=== PATIENT | female | born 1965 | race Caucasian/White ===

== ENCOUNTER 2020-06-26 09:26 | Day surgery (SDC) | payer BC ==
[2020-06-26] MEDS ORDERED: Midazolam 1 MG/ML 2 ML SDV IV ONE (09:27)
[2020-06-26] MEDS ORDERED: Propofol 200 MG/20 ML SDV IV ONE (09:27)
[2020-06-26] MEDS ORDERED: Sodium Chloride 0.9% 10 ML Syringe FLUSH PRN (09:30)
[2020-06-26] MEDS ORDERED: Lactated Ringers 1,000 ML IV SCH (09:30)
[2020-06-26] MEDS ORDERED: Propofol 200 MG/20 ML SDV ONE (10:18)
[2020-06-26] MEDS ORDERED: Midazolam 1 MG/ML 2 ML SDV ONE (10:18)
--- NOTE | 2020-06-26 10:38 | PCM.PN ---
- General Info Date of Service: 06/26/20 - Review of Systems Systems Review Comment:: 55-year-old female referred for her initial screening colonoscopy. She denies any recent change in bowel habits or rectal bleeding. She also denies any known family history of colon cancer. Patient is medically stable to proceed today. Her recent history and physical is reviewed and no significant changes are noted. I have discussed the proposed colonoscopy with the patient. Risks such as but not limited to bleeding and GI injury reviewed. She agrees to proceed. - Patient Data Vitals - Most Recent: Last Vital Signs Temp 96.4 F L 06/26/20 09:47 Pulse 80 06/26/20 09:47 Resp 20 06/26/20 09:47 BP 153/92 H 06/26/20 09:47 Pulse Ox 95 06/26/20 09:47 Weight - Most Recent: 78.925 kg Med Orders - Current: Current Medications Lactated Ringer's (Ringers, Lactated) 1,000 mls @ 50 mls/hr IV ASDIRECTED SIMÓN Last Admin: 06/26/20 10:04 Dose: 50 mls/hr Documented by: Sodium Chloride (Saline Flush) 10 ml FLUSH Q8HR PRN PRN Reason: keep vein open Discontinued Medications Midazolam HCl (Versed 1 Mg/Ml) Confirm Administered Dose 2 mg .ROUTE .STK-MED ONE Stop: 06/26/20 10:19 Propofol (Diprivan 20 Ml) Confirm Administered Dose 400 mg .ROUTE .STK-MED ONE Stop: 06/26/20 10:19 Sepsis Event Note - Focused Exam Vital Signs: Vital Signs Temp Pulse Resp BP Pulse Ox 06/26/20 09:47 96.4 F L 80 20 153/92 H 95 - Problem List Review Problem List Initiated/Reviewed/Updated: Yes - My Orders Last 24 Hours: My Active Orders 06/26/20 07:36 Resuscitation Status Routine 06/26/20 Breakfast Nothing Per Oral Diet [DIET] 06/26/20 09:30 Peripheral IV Care [RC] . DIRECTED Lactated Ringers [Ringers, Lactated] 1,000 ml IV ASDIRECTED Sodium Chloride 0.9% [Saline Flush] 10 ml FLUSH Q8HR PRN Peripheral IV Insertion Adult [OM.PC] Routine 06/26/20 10:00 Patient to Empty Bladder [RC] ASDIRECTED 06/26/20 10:30 Verify Patient Consent Obtain [RC] ASDIRECTED - Assessment Assessment:: Colon cancer screening - Plan Plan:: Colonoscopy
--- NOTE | 2020-06-26 11:09 | PCM.OPNOTE ---
- General Post-Op/Procedure Note Date of Surgery/Procedure: 06/26/20 Operative Procedure(s): Colonoscopy Findings: Moderate sized hemorrhoids Colon otherwise normal Pre Op Diagnosis: Colon Cancer Screening Post-Op Diagnosis: Hemorrhoids Anesthesia Technique: MAC Primary Surgeon: Chris Trevino Pathology: none EBL in mLs: 0 Complications: None Condition: Good
[2020-06-26 14:07] VITALS: BP 108/57; PULSE 68
--- NOTE | 2020-06-26 19:05 | OR ---
DATE OF SURGERY: 06/26/2020 SURGEON: Chris Trevino MD PREOPERATIVE DIAGNOSIS: Colon cancer screening. POSTOPERATIVE DIAGNOSIS: Hemorrhoids. OPERATION PERFORMED: Colonoscopy. INDICATIONS FOR SURGERY: This 55-year-old female was referred for her initial screening colonoscopy. She denies any recent change in bowel pattern or rectal bleeding. FINDINGS: The patient's colon and terminal ileum appear normal. She does have moderate-sized internal and external hemorrhoids. PROCEDURE IN DETAIL: The patient was taken to the operating room. She was given intravenous sedation and with her in the left lateral decubitus position, digital rectal exam was performed showing no rectal masses. The Olympus colonoscope was inserted into the rectum. Retroflexed examination of the rectal canal is performed. The scope was then carefully advanced under direct visualization through the entire length of the colon until the cecum is reached. Cecal acquisition is confirmed by noting the normal internal cecal anatomy including the appendiceal orifice and the ileocecal valve. The ileocecal valve is cannulated and the terminal ileum examined and appeared normal. The scope was then slowly withdrawn sequentially re-examining the colonic segments until the entire colon and rectum had been fully examined. The scope was removed. The patient was taken from the operating room in satisfactory condition. ESTIMATED BLOOD LOSS: 0. COMPLICATIONS: None. PROGNOSIS: Good. /[id number]/MODL
== END 2020-06-26 12:35 | disposition home or self-care (01) ==
LOC: KA.SDS 09:26
PROVIDERS: ATTEND Surgery
DX: Z12.11 Encounter for screening for malignant neoplasm of colon (principal); I10 Essential (primary) hypertension; E03.9 Hypothyroidism, unspecified; Z88.0 Allergy status to penicillin; Z79.899 Other long term (current) drug therapy; Z79.890 Hormone replacement therapy
CPT/HCPCS: 00812; J2250; J2704; J7120